=== PATIENT | male | born 1965 | race Caucasian/White ===

== ENCOUNTER 2022-03-10 12:03 | Emergency (ER) | payer OTHER, SELFPAY ==
[2022-03-10 12:05] VITALS: BP 121/72; PULSE 70; TEMP 36.8; O2SAT 98; BMI 28.6
[2022-03-10 12:13] VITALS: BP 119/78; PULSE 68
[2022-03-10] MEDS: Lidocaine 1% /Epi 1:100 (20ml) 20 ML Vial INFILT (12:49)
[2022-03-10] MEDS: Cefazolin 1 GM/50 ML BAG IV (12:49)
[2022-03-10] MEDS: morphine 8 MG/ML Syringe 6 MG IV (12:49)
--- NOTE | 2022-03-10 13:44 | CM.ED ---
SW Note SW met with patient and his as per tracker patient has no PCP. indicated patient has a PCP, [facility]. No further SW needs identified or voiced at this time. Ina LEDBETTER
[2022-03-10 15:24] VITALS: PULSE 70; RESP 14
--- NOTE | 2022-03-10 15:26 | EDS_ITS ---
HPI History of Present Illness Chief Complaint: Laceration Informant: patient Narrative Narrative: Patient is a 56-year-old male present with laceration to his left forearm. Patient is right-hand dominant. He was using a grinding saw to try to cut off bolt when the saw dropped and cut into his arm before it fell and got tangled into his pants and stopped. Patient denies any associated numbness or tingling but is having significant pain at the laceration site. Was able to get the bleeding to stop with direct pressure. Last tetanus was 1 year ago. No other complaints at this time. No other injuries reported. He is not on any anticoagulation. Tetanus Immunization: <5 years [facility] Medical History GERD (gastroesophageal reflux disease) Home Medications Nexium 03/10/22 [History Last Taken Unknown] amoxicillin 875 mg-potassium clavulanate 125 mg tablet 1 tab PO BID #14 tabs 03/10/22 [Rx Last Taken Unknown] oxycodone-acetaminophen 5 mg-325 mg tablet (Percocet) 1 tab PO Q6H PRN pain 3 days #12 tabs 03/10/22 [Rx Last Taken Unknown] Allergy/AdvReac Type Severity Reaction Status Date / Time No Known Allergies Allergy Verified 03/10/22 12:09 Surgical History Previous back surgery Social History Smoking Status: Never smoker ROS ROS ED Constitutional Constitutional ED: Denies chills or fever(s) Eyes Eyes: Denies blurry vision ENT ENT ED: Denies sore throat Cardiovascular Cardiovascular: Denies chest pain or palpitations Respiratory/Chest Respiratory/Chest: Denies cough or dyspnea Gastrointestinal Gastrointestinal: Denies nausea or vomiting Musculoskeletal Musculoskeletal: Reports other Details: left arm pain Integumentary Reports other Details: left arm laceration Neurologic Neurologic: Denies headache(s), paresthesias or weakness Psychiatric Psychiatric: Denies anxiety Hematologic/Lymphatic Hematologic/Lymphatic: Denies easy bleeding or easy bruising EXAM Physical Exam Const Vital Signs: 03/10/22 12:05 03/10/22 12:13 08/05/22 15:24 Temperature 98.3 F Temperature Source Oral Pulse Rate 70 68 70 Respiratory Rate 14 Blood Pressure 121/72 H 119/78 Blood Pressure Mean 88 91 Pulse Ox 98 Positive well nourished and well developed General Appearance ED: well developed and NAD HEENT atraumatic Eyes PERRL and EOMs intact bilaterally Neck full ROM Chest Wall inspection of chest normal Resp normal respiratory effort and clear to auscultation bilaterally Cardio regular rhythm and no murmurs Cardio Narrative: 2+ radial pulses GI normal to inspection, nondistended, normoactive bowel sounds Extremity Extremity Narrative: Large laceration of the ventral aspect of the left medial forearm. No involvement of the joints. Patient is full movement of the wrist and fingers but does have pain with movement of the fourth and fifth fingers as well as when he tries to make a fist. Neuro oriented x3, moves all extremities and no sensory deficits noted Neuro Narrative: Full movement of the hands and fingers Psych mental status grossly normal Skin Skin Narrative: Complex 12 cm full-thickness linear laceration extending to the muscle of the left forearm that is gaping by approximately 4 cm. PROC Procedures Lacerations left forearm : Length: 4.72 in Depth: Muscle Shape: Linear Prep: Sterile Conditions and Betadine Laceration repair: Foreign material removed, Irrigated (1000ml), Lidocaine with epi, Skin sutures, Subcutaneous sutures and Wound explored Number of Sutures/[place]: 15 Suture Information: Ethilon, Simple and 4-0 Comment: 4-0 Vicryl used for deep sutures. 4 deep sutures placed in the muscle layer for well approximation. An additional 4 sutures placed in the fascia. 3 subcu sutures placed. Additional fifteen 4-0 Ethilon simple interrupted sutures also placed. Patient had good wound edge approximation. Upper Extremity Splints Upper Extremity Splint: Orthoglass and Volar Splint Fabrication: Fabricated Location: Left MDM MDM MDM Narrative Medical decision making narrative: Patient evaluated for laceration to his left forearm from a grinding saw. He was given 100 mcg of fentanyl prior to arrival. He is then dosed with 6 mg IV morphine with improvement of his symptoms. Patient is given a dose of Ancef in the emergency room because of concern of developing infection. Injury is soft tissue nature and while there is some scattered debris a.m. not concern for any major foreign body given the mechanism of injury. Complex laceration repair performed taking approximately 45 minutes. Case discussed with orthopedics who is amenable to outpatient follow-up. Patient is placed in a splint to avoid range of motion until this heals up. Counseled on signs of compartment syndrome, infection and indications to return the emergency room. Discharged home with a course of Augmentin and Percocet. Patient verbalized agreement understand this plan. Discharge Plan Triage Chief Complaint: Laceration ED Provider: Sirisha Orozco Dx/Rx/DC Orders Clinical Impression: Laceration of forearm, left, complicated, Contact with powered saw as cause of accidental injury Instructions: ED Laceration: All Closures Prescriptions: New oxycodone-acetaminophen [Percocet] 5-325 mg tablet 1 tab PO Q6H PRN (Reason: pain) 3 Days Qty: 12 0RF amoxicillin-pot clavulanate 875-125 mg tablet 1 tab PO BID Qty: 14 0RF No Action Nexium Primary Care Provider: Care Physician,No Primary Referrals: Anshu Wren MD [Med Staff - Active Staff] - 3-5 Days Care Physician,No Primary [Primary Care Provider] - Activity Restrictions/Additional Instructions: Sutures should be removed in 10 days. Wear the splint until swelling in your arm goes down. Please follow-up with orthopedics next week for wound check e specially as there is a laceration to the muscle in your arm as well. Disposition Disposition: Home, Self Care Discharge Date/Time: 03/10/22 16:08
[2022-03-10] MEDS: oxyCODONE 5 MG Tablet PO (15:36)
== END 2022-03-10 16:08 | disposition home or self-care (01) ==
PROVIDERS: Emergency Provider Emergency Medicine; Visit Provider Emergency Medicine
DX: S51.822A Laceration with foreign body of left forearm, initial encounter (principal); W29.8XXA Contact with other powered hand tools and household machinery, initial encounter; Y93.89 Activity, other specified
CPT/HCPCS: 25260; 96365; 96366; 96375; 99285; A4216